=== PATIENT | male | born 1940 | race Two or more races ===

== ENCOUNTER 2016-06-27 18:42 | Emergency (ER) | payer MEDICARE, MEDICAID ==
[~2016-06-27 18:42] MED LIST: ACETAMINOPHEN PO; ALBUTEROL; ALLOPURINOL300 M1 PO; AMLODIPINE BESYL5 MG PO; ASPIR 8181 MG PO; ATROVENT0.2 MG/ML; BENAZEPRIL HCL20 MG; BENAZEPRIL HCL40 M1 PO; CARDURA2 M1 PO; COMBIVENT INH14.7 G1 IH; DALIRESP500 MC1 PO; ECOTRIN81 M1 PO; HYDROCHLOROTHIA25 MG PO; IPRATR-ALBUTEROL3 ML IH; LIPITOR10 MG PO; NORVASC5 MG; PLETAL100 M1 PO; PLETAL50 M1 PO; PULMICORT; SPIRIVA18 MCG IH; THEO-24300 MG
[2016-06-27] MEDS ORDERED: PREDNISONE10 M1 PO (20:11)
== END 2016-06-27 20:28 ==
LOC: EDMED 18:42
DX: L29.9 Pruritus, unspecified (principal); I10 Essential (primary) hypertension; J44.9 Chronic obstructive pulmonary disease, unspecified; E78.5 Hyperlipidemia, unspecified; Z79.82 Long term (current) use of aspirin; Z79.899 Other long term (current) drug therapy; F17.200 Nicotine dependence, unspecified, uncomplicated